=== PATIENT | male | born 1945 | race Caucasian/White ===

== ENCOUNTER 2021-10-07 10:36 | Outpatient (CLI) | payer BC, MEDICARE ==
[2021-10-07 11:13] LABS: BASOPHILS # (AUTO) 0.1 X10'3 (0-0.2); BASOPHILS % (AUTO) 0.7 % (0-1); EOSINOPHILS # (AUTO) 0.1 X10'3 (0-0.9); EOSINOPHILS % (AUTO) 1.5 % (0-6); HEMATOCRIT 47.1 % (42.0-52.0); HEMOGLOBIN 15.8 g/dl (14.0-17.9); LYMPHOCYTES # (AUTO) 1.4 X10'3 (1.1-4.8); LYMPHOCYTES % (AUTO) 16.8 % (21-51); MEAN CORPUSCULAR HEMOGLOBIN 31.6 PG (27.0-31.0); MEAN CORPUSCULAR HGB CONC 33.6 g/dL (33.0-36.5); MEAN PLATELET VOLUME 8.3 FL (7.4-10.4); MONOCYTES # (AUTO) 0.7 X10'3 (0-0.9); MONOCYTES % (AUTO) 8.9 % (2-12); NEUTROPHILS % (AUTO) 72.1 % (42-75); PLATELET COUNT 239 X10'3 (140-440); RED BLOOD COUNT 5.01 X10'6 (4.70-6.10); RED CELL DISTRIBUTION WIDTH 12.7 % (11.5-14.5); WHITE BLOOD COUNT 8.4 X10'3 (4.5-11.0)
[2021-10-07 11:36] LABS: ALANINE AMINOTRANSFERASE 25 U/L (12-78); ALBUMIN 3.6 G/DL (3.4-5.0); ALKALINE PHOSPHATASE 91 IU/L (46-116); ANION GAP 6 (8-16); ASPARTATE AMINO TRANSFERASE 23 U/L (10-37); BILIRUBIN,TOTAL 0.5 MG/DL (0.1-1.0); BLOOD UREA NITROGEN 18 MG/DL (7-18); BUN/CREATININE RATIO 16.4 (5.4-32.0); CALCIUM 8.9 MG/DL (8.5-10.1); CHLORIDE 105 MMOL/L (99-107); CHOL/HDL RATIO 2.4 (0.00-4.99); CHOLESTEROL 116 MG/DL (0-200); GLUCOSE 102 MG/DL (70-104); HDL CHOLESTEROL 48 MG/DL (35-60); LDL CHOLESTEROL 59 MG/DL (50-100); SODIUM 140 MMOL/L (135-145); TOTAL CARBON DIOXIDE 29.4 MMOL/L (24-32); TOTAL PROTEIN 7.3 G/DL (6.4-8.2); TRIGLYCERIDES 34 MG/DL (20-135); eGFR 65 ML/MIN
[2021-10-07 11:50] LABS: HEMOGLOBIN A1C 5.9 % (4.5-6.2)
== END 2021-10-07 23:59 | disposition home or self-care (01) ==
LOC: LAB 10:36
PROVIDERS: ATTEND Family Medicine
DX: Z12.5 Encounter for screening for malignant neoplasm of prostate (principal); E11.9 Type 2 diabetes mellitus without complications; E78.00 Pure hypercholesterolemia, unspecified; I10 Essential (primary) hypertension
CPT/HCPCS: 36415; 80053; 80061; 83036; 84153; 84443; 85025

== ENCOUNTER 2021-11-01 11:24 | Outpatient (CLI) | payer BC, MEDICARE ==
[2021-11-05 09:37] LABS: TESTOSTERONE, FREE, DIRECT 4.7
== END 2021-11-01 23:59 | disposition home or self-care (01) ==
LOC: LAB 11:24
PROVIDERS: ATTEND Family Medicine
DX: E55.9 Vitamin D deficiency, unspecified (principal); E29.1 Testicular hypofunction
CPT/HCPCS: 36415; 82306; 84402; 84403

== ENCOUNTER → 2022-08-11 | Outpatient (CLI) | payer BC | END | disposition home or self-care (01) | LOC: LAB 12:06 | PROVIDERS: ATTEND Nurse Practitioner Family | DX: R06.09 Other forms of dyspnea (principal); E78.5 Hyperlipidemia, unspecified; I70.213 Atherosclerosis of native arteries of extremities with intermittent claudication, bilateral legs; I10 Essential (primary) hypertension | CPT/HCPCS: 36415; 71046; 83880 ==

== ENCOUNTER → 2022-08-11 | Outpatient (CLI) | payer BC ==
[2022-08-11 14:11] LABS: BASOPHILS % (AUTO) 0.4 % (0-1); EOSINOPHILS # (AUTO) 0.2 X10'3 (0-0.9); EOSINOPHILS % (AUTO) 2.2 % (0-6); HEMOGLOBIN 15.2 g/dl (14.0-17.9); LYMPHOCYTES # (AUTO) 1.6 X10'3 (1.1-4.8); LYMPHOCYTES % (AUTO) 18.9 % (21-51); MEAN CORPUSCULAR HEMOGLOBIN 31.3 PG (27.0-31.0); MEAN CORPUSCULAR VOLUME 94.9 FL (78-98); MEAN PLATELET VOLUME 8.4 FL (7.4-10.4); MONOCYTES # (AUTO) 0.7 X10'3 (0-0.9); MONOCYTES % (AUTO) 7.7 % (2-12); NEUTROPHILS % (AUTO) 70.8 % (42-75); PLATELET COUNT 235 X10'3 (140-440); RED BLOOD COUNT 4.85 X10'6 (4.70-6.10); RED CELL DISTRIBUTION WIDTH 12.4 % (11.5-14.5); WHITE BLOOD COUNT 8.5 X10'3 (4.5-11.0)
[2022-08-11 14:24] LABS: ALANINE AMINOTRANSFERASE 27 U/L (12-78); ALBUMIN 3.9 G/DL (3.4-5.0); ALBUMIN/GLOBULIN RATIO 1.1 (1.1-1.5); ALKALINE PHOSPHATASE 86 IU/L (46-116); ANION GAP 10 (8-16); ASPARTATE AMINO TRANSFERASE 22 U/L (10-37); BILIRUBIN,TOTAL 0.5 MG/DL (0.1-1.0); BLOOD UREA NITROGEN 16 MG/DL (7-18); CALCIUM 9.1 MG/DL (8.5-10.1); CHLORIDE 107 MMOL/L (99-107); CHOL/HDL RATIO 2.6 (0.00-4.99); CHOLESTEROL 125 MG/DL (0-200); CREATININE 1.33 MG/DL (0.60-1.10); GLUCOSE 101 MG/DL (70-104); HDL CHOLESTEROL 49 MG/DL (35-60); LDL CHOLESTEROL 66 MG/DL (50-100); POTASSIUM 4.2 MMOL/L (3.5-5.1); SODIUM 143 MMOL/L (135-145); TOTAL PROTEIN 7.3 G/DL (6.4-8.2); TRIGLYCERIDES 62 MG/DL (20-135); eGFR 52 ML/MIN
== END | disposition home or self-care (01) ==
LOC: LAB 12:14
PROVIDERS: ATTEND Family Medicine
DX: D64.9 Anemia, unspecified (principal); E78.00 Pure hypercholesterolemia, unspecified
CPT/HCPCS: 36415; 80053; 80061; 85025

== ENCOUNTER → 2022-08-18 | Outpatient (CLI) | payer BC ==
[~2022-08-18] MED LIST: iohexol 350 MG/ML 50ML vial IV ONE; iohexol 350MG/ML 100ml bottle IV ONE
== END | disposition home or self-care (01) ==
LOC: RAD 08:47
PROVIDERS: ATTEND Internal Medicine Interventional Cardiology
DX: I70.213 Atherosclerosis of native arteries of extremities with intermittent claudication, bilateral legs (principal); I72.3 Aneurysm of iliac artery; I10 Essential (primary) hypertension; I71.43 Infrarenal abdominal aortic aneurysm, without rupture
CPT/HCPCS: 75635; J3490; Q9967

== ENCOUNTER 2022-11-16 10:34 | Outpatient (CLI) | payer BC ==
[2022-11-16 11:01] LABS: BASOPHILS # (AUTO) 0.1 X10'3 (0-0.2); BASOPHILS % (AUTO) 0.7 % (0-1); EOSINOPHILS # (AUTO) 0.3 X10'3 (0-0.9); HEMATOCRIT 44.4 % (42.0-52.0); HEMOGLOBIN 15.1 g/dl (14.0-17.9); LYMPHOCYTES # (AUTO) 2.1 X10'3 (1.1-4.8); LYMPHOCYTES % (AUTO) 22.4 % (21-51); MEAN CORPUSCULAR HEMOGLOBIN 32.1 PG (27.0-31.0); MEAN CORPUSCULAR HGB CONC 33.9 g/dL (33.0-36.5); MEAN CORPUSCULAR VOLUME 94.6 FL (78-98); MEAN PLATELET VOLUME 8.3 FL (7.4-10.4); MONOCYTES # (AUTO) 0.8 X10'3 (0-0.9); MONOCYTES % (AUTO) 8.9 % (2-12); NEUTROPHILS # (AUTO) 6.2 X10'3 (1.8-7.7); PLATELET COUNT 262 X10'3 (140-440); RED CELL DISTRIBUTION WIDTH 12.8 % (11.5-14.5); WHITE BLOOD COUNT 9.5 X10'3 (4.5-11.0)
[2022-11-16 11:04] LABS: ALBUMIN 3.7 G/DL (3.4-5.0); ANION GAP 9 (8-16); BLOOD UREA NITROGEN 17 MG/DL (7-18); BUN/CREATININE RATIO 12.1 (10.0-20.0); CALCIUM 9.3 MG/DL (8.5-10.1); CHLORIDE 105 MMOL/L (99-107); CREATININE 1.41 MG/DL (0.60-1.10); GLUCOSE 100 MG/DL (70-104); SODIUM 141 MMOL/L (135-145); TOTAL CARBON DIOXIDE 26.6 MMOL/L (24-32); eGFR 49 ML/MIN
[2022-11-16 11:08] LABS: APTT 31 SECONDS (22-32)
== END 2022-11-16 23:59 | disposition home or self-care (01) ==
LOC: LAB 10:34
PROVIDERS: ATTEND Surgery Vascular Surgery
DX: I71.40 Abdominal aortic aneurysm, without rupture, unspecified (principal)
CPT/HCPCS: 36415; 80048; 85025; 85610; 85730

== ENCOUNTER 2022-12-10 10:06 | Outpatient (CLI) | payer BC | END 2022-12-10 23:59 | disposition home or self-care (01) | LOC: VAS 10:06 | PROVIDERS: ATTEND Internal Medicine Interventional Cardiology | DX: I71.30 Abdominal aortic aneurysm, ruptured, unspecified (principal); I72.3 Aneurysm of iliac artery; I70.213 Atherosclerosis of native arteries of extremities with intermittent claudication, bilateral legs | CPT/HCPCS: 93978 ==

== ENCOUNTER 2023-01-05 23:39 | Inpatient (IN) | payer BC, MEDICARE ==
[~2023-01-05] VITALS: Ht 177.8 cm; Wt 77.3 kg
[2023-01-05] MEDS ORDERED: ondansetron/PF 4mg/2ml inj IV ONE (23:45)
[2023-01-05] MEDS ORDERED: morphine 4 MG/ML inj SYRINge IV ONE (23:45)
[2023-01-05] MEDS ORDERED: hydrALAZINE 20mg/ml inj. IV ONE (23:45)
[2023-01-05] MEDS ORDERED: iohexol 350MG/ML 100ml bottle IV ONE (23:46)
--- NOTE | 2023-01-05 23:54 | NUR ---
Per MD, evaluate BP after Morphine to assess need for Hydralazine.
[2023-01-05 23:59] LABS: BASOPHILS # (AUTO) 0.1 X10'3 (0-0.2); BASOPHILS % (AUTO) 0.9 % (0-1); EOSINOPHILS # (AUTO) 0.5 X10'3 (0-0.9); HEMATOCRIT 41.7 % (42.0-52.0); HEMOGLOBIN 13.9 g/dl (14.0-17.9); LYMPHOCYTES # (AUTO) 2.6 X10'3 (1.1-4.8); LYMPHOCYTES % (AUTO) 25.1 % (21-51); MEAN CORPUSCULAR HEMOGLOBIN 31.2 PG (27.0-31.0); MEAN CORPUSCULAR HGB CONC 33.4 g/dL (33.0-36.5); MEAN CORPUSCULAR VOLUME 93.5 FL (78-98); MEAN PLATELET VOLUME 7.6 FL (7.4-10.4); MONOCYTES # (AUTO) 0.8 X10'3 (0-0.9); MONOCYTES % (AUTO) 7.5 % (2-12); NEUTROPHILS # (AUTO) 6.4 X10'3 (1.8-7.7); NEUTROPHILS % (AUTO) 61.5 % (42-75); PLATELET COUNT 271 X10'3 (140-440); RED BLOOD COUNT 4.46 X10'6 (4.70-6.10); RED CELL DISTRIBUTION WIDTH 13.2 % (11.5-14.5); WHITE BLOOD COUNT 10.4 X10'3 (4.5-11.0)
[2023-01-06 00:10] LABS: ALANINE AMINOTRANSFERASE 20 U/L (12-78); ALBUMIN 3.5 G/DL (3.4-5.0); ALBUMIN/GLOBULIN RATIO 0.9 (1.1-1.5); ALKALINE PHOSPHATASE 103 IU/L (46-116); ANION GAP 6 (8-16); ASPARTATE AMINO TRANSFERASE 18 U/L (10-37); BILIRUBIN,TOTAL 0.4 MG/DL (0.1-1.0); BLOOD UREA NITROGEN 22 MG/DL (7-18); BUN/CREATININE RATIO 17.5 (10.0-20.0); CALCIUM 9.2 MG/DL (8.5-10.1); CHLORIDE 106 MMOL/L (99-107); CREATININE 1.26 MG/DL (0.60-1.10); GLUCOSE 173 MG/DL (70-104); SODIUM 140 MMOL/L (135-145); TOTAL CARBON DIOXIDE 27.6 MMOL/L (24-32); TOTAL PROTEIN 7.3 G/DL (6.4-8.2); eGFR 55 ML/MIN
[2023-01-06 00:19] LABS: MAGNESIUM 1.9 MG/DL (1.5-2.4)
[2023-01-06] MEDS ORDERED: morphine 4 MG/ML inj SYRINge IV ONE (00:20)
[2023-01-06] MEDS ORDERED: esmolol/sodium cl bag 250 ML IV SCH (00:20)
[2023-01-06] MEDS: nitroGLYCERIN 0.4mg SUBLingual tab SL PRN ×2 (00:36→01:08)
[2023-01-06 00:53] LABS: D-DIMER 4.05 MG/L FEU (0-0.50)
[2023-01-06] MEDS ORDERED: nitroGLYCERIN-Tridil 50MG/D5W 250 ML IV SCH ×2 (01:15→01:18)
[2023-01-06] MEDS ORDERED: TRAM50TA2 PO (01:43)
[2023-01-06] MEDS ORDERED: ATOR40TA7 PO (01:43)
[2023-01-06] MEDS ORDERED: OLME40TA70 PO (01:43)
[2023-01-06] MEDS ORDERED: ASPI-1071 PO (01:43)
[2023-01-06] MEDS ORDERED: CLOP-32 PO (01:43)
[2023-01-06] MEDS ORDERED: HYDROmorphone inj. 0.5 MG/0.5 ML DISP.SYRIN IV ONE (02:00)
[2023-01-06] MEDS ORDERED: heparin 10,000 units/1 ML INJ IV ONE ×2 (02:25→02:30)
[2023-01-06] MEDS ORDERED: heparin 25,000 UNIT/250ml bag 250 ML IV PRN (02:25)
[2023-01-06] MEDS ORDERED: heparin 10,000 units/1 ML INJ IV PRN (02:25)
[2023-01-06] MEDS ORDERED: magnesium 4gm in 100ml NS 100 ML IV PRN (02:55)
[2023-01-06] MEDS: normal saline 1000ml 1,000 ML IV SCH ×2 (02:55→16:45)
[2023-01-06] MEDS ORDERED: potassium Cl 40MEQ/1/2NS 520ml 520 ML IV PRN (02:55)
[2023-01-06] MEDS ORDERED: acetaminophen 325mg tablet PO PRN ×2 (02:55)
[2023-01-06] MEDS ORDERED: magnesium 2GM in 50ml NS 50 ML IV PRN (02:55)
[2023-01-06] MEDS ORDERED: ondansetron/PF 4mg/2ml inj IV PRN (02:55)
[2023-01-06] MEDS ORDERED: magnesium Cl slow-release 64mg tablet PO PRN (02:55)
[2023-01-06] MEDS ORDERED: HYDROcodone/acetaminophen 10/325mg tab PO PRN (02:55)
[2023-01-06] MEDS ORDERED: HYDROcodone/acetaminophen 5mg/325mg tablet PO PRN (02:55)
[2023-01-06] MEDS ORDERED: morphine 2 MG/ML inj. syringe IV PRN ×2 (02:55)
[2023-01-06] MEDS ORDERED: potassium Cl 20 mEq SR tablet PO PRN ×2 (02:55)
[2023-01-06] MEDS: nicotine 14mg patch - 24hr TD SCH ×2 (03:20→07:37)
[2023-01-06] MEDS: pantoprazole 40mg Tablet.DR PO SCH ×3 (03:30→20:03)
--- NOTE | 2023-01-06 03:33 | NUR ---
Approached by patient , patient back in 05/12 pain. Page to Magu as patient's pain did not respond to Morphine earlier in care and patient only had PRN 2mg Morphine ordered by Hospitalist. Hospitalist hostile on phone and stated "I am not giving him any more pain meds than I have ordered. That patient is not in pain." Nurse informed Hospitalist that patient is in fact in 05/12 and exhibiting physical signs of pain, Magu continued to argue with nurse and stated "Im not talking about this anymore if Dr Magaña wants to write for more pain meds than he can". Nurse approached Dr. Magaña who has agreed to put in more effective PRN pain control orders as he has been a witness to patient severe pain.
[2023-01-06] MEDS ORDERED: HYDROmorphone/PF 0.2 MG/ML SYRINGE IV PRN ×2 (03:35)
[2023-01-06] MEDS: HYDROmorphone inj. 0.5 MG/0.5 ML DISP.SYRIN IV PRN ×2 (03:51→11:08)
--- NOTE | 2023-01-06 04:57 | NUR ---
Patient asleep. Resting comfortably in bed, no signs of distress.
[2023-01-06] MEDS: aspirin 81mg, enteric-coated 1 TAB TABLET.DR PO SCH (07:34)
[2023-01-06] MEDS: atorvastatin 20mg tablet PO SCH (07:35)
[2023-01-06] MEDS: clopidogrel 75mg tablet PO SCH (07:35)
[2023-01-06 08:00] VITALS: BP 180/102
--- NOTE | 2023-01-06 08:10 | NUR ---
Pt brought from ER. Report received from Rajwinder. Pt is in bed and has pain and correlating high BP. Pt took BP med last night. Will treat with lessening of pain and will recheck.
[2023-01-06] MEDS: traMADol 50MG tablet PO SCH ×2 (08:21→20:03)
[2023-01-06] MEDS: heparin, porcine 5000 units/ml vial SQ SCH ×3 (08:22→20:03)
[2023-01-06] MEDS: HYDROcodone/acetaminophen 10/325mg tab PO PRN ×2 (10:05→22:09)
--- NOTE | 2023-01-06 10:30 | NUR ---
PAGER ID: [phone] MESSAGE: Ethan [id number], Pt has received all pain meds I have for coverage but still shows no signs of relief. Pt is in high pain even with Dilaudid and [place]. Mehdi [id number]
[2023-01-06 11:00] VITALS: BP 191/99
[2023-01-06] MEDS ORDERED: LORazepam 2 mg/ml vial IV PRN (12:05)
[2023-01-06] MEDS: LIDOcaine 5% patch TP SCH (12:05)
[2023-01-06] MEDS: HYDROmorphone 1 mg/ml syringe IV PRN ×2 (14:33→19:30)
[2023-01-06 15:00] VITALS: BP 178/90
[2023-01-06] MEDS ORDERED: GADOTERATE MEGLUMINE 7.5 MMOL/15 ML VIAL IV ONE (15:50)
--- NOTE | 2023-01-06 17:13 | NUR ---
Pt still has high BP but it is lower than it has been today, last reading was 178/90. Pt usually takes his BP meds at night so we are in his normal routine. Pt's elevated BP seems to be mostly due to his strong pain he is experiencing. Will continue to monitor but pt is unconcerned about his BP currently.
[2023-01-06] MEDS ORDERED: hydrALAZINE 20mg/ml inj. IV PRN (17:55)
--- NOTE | 2023-01-06 17:56 | NUR ---
PAGER ID: [phone] MESSAGE: Ethan [id number], Pt's BP has been high today. His BP med on the med rec was held and we have no BP med in his eMAR. Did you want one started? Mehdi [phone]
[2023-01-06 18:00] VITALS: BP 186/107
--- NOTE | 2023-01-06 18:46 | NUR ---
Problems reprioritized. Patient report given, questions answered & plan of care reviewed with Raul PHILLIPS.
--- NOTE | 2023-01-06 21:00 | NUR ---
Agree with DIMENSION SPECIFICATION INSPECTOR's assessments.
[2023-01-07 02:00] VITALS: BP 152/82
--- NOTE | 2023-01-07 06:40 | NUR ---
Patient in room PCU 3027. I have received report from Raul PHILLIPS and had the opportunity to ask questions and assume patient care.
[2023-01-07] MEDS: normal saline 1000ml 1,000 ML IV SCH (06:42)
[2023-01-07 06:51] LABS: ALANINE AMINOTRANSFERASE 16 U/L (12-78); ALBUMIN 3.1 G/DL (3.4-5.0); ALBUMIN/GLOBULIN RATIO 0.9 (1.1-1.5); ALKALINE PHOSPHATASE 88 IU/L (46-116); ANION GAP 8 (8-16); ASPARTATE AMINO TRANSFERASE 22 U/L (10-37); BASOPHILS % (AUTO) 0.3 % (0-1); BILIRUBIN,TOTAL 0.8 MG/DL (0.1-1.0); BLOOD UREA NITROGEN 14 MG/DL (7-18); BUN/CREATININE RATIO 14.3 (10.0-20.0); CALCIUM 8.8 MG/DL (8.5-10.1); CHLORIDE 106 MMOL/L (99-107); CREATININE 0.98 MG/DL (0.60-1.10); EOSINOPHILS # (AUTO) 0.1 X10'3 (0-0.9); EOSINOPHILS % (AUTO) 0.6 % (0-6); GLUCOSE 117 MG/DL (70-104); HEMATOCRIT 37.4 % (42.0-52.0); HEMOGLOBIN 12.8 g/dl (14.0-17.9); LYMPHOCYTES # (AUTO) 1.2 X10'3 (1.1-4.8); MEAN CORPUSCULAR HEMOGLOBIN 32.2 PG (27.0-31.0); MEAN CORPUSCULAR HGB CONC 34.3 g/dL (33.0-36.5); MEAN CORPUSCULAR VOLUME 93.8 FL (78-98); MEAN PLATELET VOLUME 7.7 FL (7.4-10.4); MONOCYTES # (AUTO) 1.5 X10'3 (0-0.9); MONOCYTES % (AUTO) 14.9 % (2-12); NEUTROPHILS # (AUTO) 7.3 X10'3 (1.8-7.7); NEUTROPHILS % (AUTO) 72.2 % (42-75); PLATELET COUNT 206 X10'3 (140-440); POTASSIUM 3.5 MMOL/L (3.5-5.1); RED BLOOD COUNT 3.99 X10'6 (4.70-6.10); RED CELL DISTRIBUTION WIDTH 13.5 % (11.5-14.5); SODIUM 139 MMOL/L (135-145); TOTAL CARBON DIOXIDE 24.8 MMOL/L (24-32); TOTAL PROTEIN 6.5 G/DL (6.4-8.2); eGFR 74 ML/MIN
[2023-01-07] MEDS: traMADol 50MG tablet PO SCH ×2 (08:00→08:54)
[2023-01-07] MEDS: LIDOcaine 5% patch TP SCH (08:00)
[2023-01-07] MEDS ORDERED: losartan 50mg tablet PO SCH (08:00)
[2023-01-07] MEDS: nicotine 14mg patch - 24hr TD SCH (08:00)
[2023-01-07] MEDS: heparin, porcine 5000 units/ml vial SQ SCH (08:00)
[2023-01-07 08:53] VITALS: BP_SYST 176
[2023-01-07] MEDS: clopidogrel 75mg tablet PO SCH (08:53)
[2023-01-07] MEDS: pantoprazole 40mg Tablet.DR PO SCH (08:53)
[2023-01-07] MEDS: aspirin 81mg, enteric-coated 1 TAB TABLET.DR PO SCH (08:54)
[2023-01-07] MEDS: atorvastatin 20mg tablet PO SCH (08:54)
[2023-01-07] MEDS ORDERED: LORA-269 PO (09:33)
[2023-01-07] MEDS ORDERED: HYDR-3972 PO (09:33)
[2023-01-07] MEDS ORDERED: NICO-631 TD (09:33)
--- NOTE | 2023-01-07 12:34 | NUR ---
Pt DC'd as per Dr's orders. Pt unhooked from all IV and tele. Education was provided to pt and spouse, all questions were answered. Pt's belongings were gathered up by family and taken with them. 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 Pt walked down to [facility] and left in private vehicle destined for home.
== END 2023-01-07 11:09 | disposition home or self-care (01) | DRG 313 ==
LOC: ER 23:40 → ED HOLD 01-06 02:56 → PCU 3S 01-06 07:48
PROVIDERS: ADMIT Internal Medicine; ATTEND Internal Medicine
PROC: BW251ZZ Computerized Tomography (CT Scan) of Chest, Abdomen and Pelvis using Low Osmolar Contrast (ICD-10-PCS; principal; 2023-01-06)
DX: R07.89 Other chest pain (principal); M54.30 Sciatica, unspecified side; I10 Essential (primary) hypertension; L40.9 Psoriasis, unspecified; R79.89 Other specified abnormal findings of blood chemistry; F17.290 Nicotine dependence, other tobacco product, uncomplicated; J44.9 Chronic obstructive pulmonary disease, unspecified; M62.838 Other muscle spasm; D18.09 Hemangioma of other sites; M54.6 Pain in thoracic spine; G89.29 Other chronic pain; Z88.6 Allergy status to analgesic agent; Z88.8 Allergy status to other drugs, medicaments and biological substances; Z79.899 Other long term (current) drug therapy; Z86.79 Personal history of other diseases of the circulatory system; Z88.1 Allergy status to other antibiotic agents; Z79.02 Long term (current) use of antithrombotics/antiplatelets; Z79.82 Long term (current) use of aspirin
CPT/HCPCS: 36415; 71045; 71275; 72157; 74174; 80053; 83605; 83735; 83880; 84484; 85025; 85379; 85610; 85730; 86885; 86900; 86901; 87040; 87081; 96374; 96375; 99285; A9575; G0378; J0360; J1170; J1644; J2060; J2270; J2405; J3490; J7030; Q9967

== ENCOUNTER 2023-02-02 05:35 | Emergency (ER) | payer BC, MEDICARE ==
[~2023-02-02] VITALS: Ht 177.8 cm; Wt 75.0 kg
[~2023-02-02 05:35] MED LIST changes: +ASPI-1071 PO; +ATOR40TA7 PO; +CLOP-32 PO; +HYDR-3972 PO; +LORA-269 PO; +NICO-631 TD; +OLME40TA70 PO; +TRAM50TA2 PO; -iohexol 350 MG/ML 50ML vial IV ONE; -iohexol 350MG/ML 100ml bottle IV ONE
[2023-02-02] MEDS ORDERED: morphine 4 MG/ML inj SYRINge IV ONE ×4 (05:50→09:00)
[2023-02-02] MEDS ORDERED: ondansetron/PF 4mg/2ml inj IV ONE ×2 (05:50→13:50)
[2023-02-02 06:20] LABS: APTT 33 SECONDS (22-32)
[2023-02-02 06:22] LABS: ALANINE AMINOTRANSFERASE 14 U/L (12-78); ALBUMIN/GLOBULIN RATIO 0.7 (1.1-1.5); ALKALINE PHOSPHATASE 99 IU/L (46-116); ANION GAP 9 (8-16); ASPARTATE AMINO TRANSFERASE 14 U/L (10-37); BILIRUBIN,TOTAL 0.3 MG/DL (0.1-1.0); BLOOD UREA NITROGEN 17 MG/DL (7-18); CHLORIDE 106 MMOL/L (99-107); CREATININE 1.42 MG/DL (0.60-1.10); GLUCOSE 146 MG/DL (70-104); POTASSIUM 3.4 MMOL/L (3.5-5.1); SODIUM 141 MMOL/L (135-145); TOTAL CARBON DIOXIDE 26.4 MMOL/L (24-32); TOTAL PROTEIN 7.2 G/DL (6.4-8.2); eGFR 48 ML/MIN
[2023-02-02 06:23] LABS: BASOPHILS # (AUTO) 0.1 X10'3 (0-0.2); BASOPHILS % (AUTO) 0.4 % (0-1); EOSINOPHILS # (AUTO) 0.3 X10'3 (0-0.9); EOSINOPHILS % (AUTO) 2.1 % (0-6); HEMATOCRIT 36.6 % (42.0-52.0); HEMOGLOBIN 12.2 g/dl (14.0-17.9); LYMPHOCYTES # (AUTO) 1.1 X10'3 (1.1-4.8); LYMPHOCYTES % (AUTO) 7.3 % (21-51); MEAN CORPUSCULAR HEMOGLOBIN 30.8 PG (27.0-31.0); MEAN CORPUSCULAR HGB CONC 33.4 g/dL (33.0-36.5); MEAN CORPUSCULAR VOLUME 92.3 FL (78-98); MEAN PLATELET VOLUME 8.2 FL (7.4-10.4); MONOCYTES # (AUTO) 1.2 X10'3 (0-0.9); MONOCYTES % (AUTO) 7.7 % (2-12); NEUTROPHILS # (AUTO) 12.5 X10'3 (1.8-7.7); NEUTROPHILS % (AUTO) 82.5 % (42-75); PLATELET COUNT 332 X10'3 (140-440); RED BLOOD COUNT 3.97 X10'6 (4.70-6.10); RED CELL DISTRIBUTION WIDTH 13.7 % (11.5-14.5); WHITE BLOOD COUNT 15.1 X10'3 (4.5-11.0)
--- NOTE | 2023-02-02 06:25 | NUR ---
vascular at bedside
[2023-02-02] MEDS ORDERED: normal saline 1000ML IV soln IVB ONE (07:50)
--- NOTE | 2023-02-02 09:36 | NUR ---
PATIENT AT MRI
[2023-02-02] MEDS ORDERED: atorvastatin 20mg tablet PO ONE (11:19)
[2023-02-02] MEDS ORDERED: losartan 50mg tablet PO ONE (11:20)
[2023-02-02] MEDS ORDERED: clopidogrel 75mg tablet PO ONE (11:20)
[2023-02-02] MEDS ORDERED: dexamethasone sod phosphate 10mg/ml inj IV STA (12:22)
[2023-02-02] MEDS ORDERED: HYDROmorphone 1 mg/ml syringe IV ONE (13:05)
[2023-02-02 14:19] VITALS: BP 148/74
== END 2023-02-02 14:20 | disposition short-term general hospital (02) ==
LOC: ER 05:36
DX: R53.1 Weakness (principal); M54.9 Dorsalgia, unspecified; R20.0 Anesthesia of skin; I10 Essential (primary) hypertension; R79.1 Abnormal coagulation profile; J44.9 Chronic obstructive pulmonary disease, unspecified; Z72.89 Other problems related to lifestyle; Z88.8 Allergy status to other drugs, medicaments and biological substances; Z88.1 Allergy status to other antibiotic agents; Z79.82 Long term (current) use of aspirin; Z79.899 Other long term (current) drug therapy
CPT/HCPCS: 36415; 72148; 80053; 85025; 85610; 85730; 93925; 96374; 96375; 96376; 99285; J1100; J1170; J2270; J2405; J7030

== ENCOUNTER 2023-03-02 10:31 | Emergency (ER) | payer BC, MEDICARE ==
[~2023-03-02] VITALS: Ht 165.1 cm; Wt 63.6 kg
[2023-03-02 10:36] VITALS: TEMP 97.9
[2023-03-02 11:00] LABS: COLOR,URINE BROWN (Yellow)
[2023-03-02] MEDS ORDERED: LEVO-65 PO (11:00)
[2023-03-02] MEDS ORDERED: CefTRIAXone 2gm/D5W 50ml BAG 50 ML IV ONE (11:00)
[2023-03-02 11:03] LABS: BASOPHILS # (AUTO) 0.1 X10'3 (0-0.2); EOSINOPHILS # (AUTO) 0.5 X10'3 (0-0.9); EOSINOPHILS % (AUTO) 6.2 % (0-6); HEMATOCRIT 37.6 % (42.0-52.0); HEMOGLOBIN 12.4 g/dl (14.0-17.9); LYMPHOCYTES # (AUTO) 1.7 X10'3 (1.1-4.8); LYMPHOCYTES % (AUTO) 21.7 % (21-51); MEAN CORPUSCULAR HEMOGLOBIN 30.1 PG (27.0-31.0); MEAN CORPUSCULAR HGB CONC 32.9 g/dL (33.0-36.5); MEAN CORPUSCULAR VOLUME 91.4 FL (78-98); MEAN PLATELET VOLUME 7.9 FL (7.4-10.4); MONOCYTES # (AUTO) 0.7 X10'3 (0-0.9); MONOCYTES % (AUTO) 9.2 % (2-12); NEUTROPHILS # (AUTO) 4.8 X10'3 (1.8-7.7); NEUTROPHILS % (AUTO) 61.9 % (42-75); PLATELET COUNT 228 X10'3 (140-440); RED BLOOD COUNT 4.11 X10'6 (4.70-6.10); RED CELL DISTRIBUTION WIDTH 14.1 % (11.5-14.5); WHITE BLOOD COUNT 7.8 X10'3 (4.5-11.0)
[2023-03-02 11:03] LABS: CLARITY,URINE BLOODY (Clear); UA COLLECTION TYPE FOLEY CATH
[2023-03-02 11:16] LABS: BACTERIA,URINE 2+ /HPF (Neg); MUCUS STRANDS NONE SEEN /LPF (Neg); RBC,URINE TNTC /HPF (0-2); SQUAMOUS EPITHELIAL CELL,UR NONE SEEN /LPF (FEW); WBC CLUMPS,URINE FEW /HPF (NEGATIVE)
[2023-03-02 11:17] LABS: ALANINE AMINOTRANSFERASE 18 U/L (12-78); ALBUMIN 3.2 G/DL (3.4-5.0); ALBUMIN/GLOBULIN RATIO 0.9 (1.1-1.5); ALKALINE PHOSPHATASE 107 IU/L (46-116); ANION GAP 11 (8-16); ASPARTATE AMINO TRANSFERASE 13 U/L (10-37); BILIRUBIN,TOTAL 0.4 MG/DL (0.1-1.0); BLOOD UREA NITROGEN 20 MG/DL (7-18); BUN/CREATININE RATIO 16.1 (10.0-20.0); CALCIUM 9.6 MG/DL (8.5-10.1); CHLORIDE 104 MMOL/L (99-107); CREATININE 1.24 MG/DL (0.60-1.10); GLUCOSE 117 MG/DL (70-104); SODIUM 139 MMOL/L (135-145); TOTAL CARBON DIOXIDE 24.5 MMOL/L (24-32); TOTAL PROTEIN 6.9 G/DL (6.4-8.2); eGFR 56 ML/MIN
[2023-03-02 12:13] VITALS: BP 105/64; PULSE 105; RESP 16; O2SAT 97
== END 2023-03-02 12:19 | disposition home or self-care (01) ==
LOC: ER 10:32
DX: R31.9 Hematuria, unspecified (principal); J44.9 Chronic obstructive pulmonary disease, unspecified; I10 Essential (primary) hypertension; Z88.8 Allergy status to other drugs, medicaments and biological substances; Z88.1 Allergy status to other antibiotic agents; Z87.891 Personal history of nicotine dependence
CPT/HCPCS: 36415; 80053; 81001; 83605; 84145; 85025; 87040; 87088; 96365; 99284; J0696; 87077; 87186; A4340; C1758

== ENCOUNTER 2023-03-15 10:38 | Emergency (ER) | payer BC, MEDICARE ==
[~2023-03-15] VITALS: Ht 167.6 cm; Wt 63.3 kg
[~2023-03-15 10:38] MED LIST changes: +LEVO-65 PO
[2023-03-15 10:41] VITALS: TEMP 97.8
[2023-03-15 10:55] LABS: COLOR,URINE RED (Yellow)
[2023-03-15 11:01] LABS: CLARITY,URINE BLOODY (Clear); UA COLLECTION TYPE CLN CATCH MIDSTREAM
[2023-03-15 11:12] LABS: BASOPHILS # (AUTO) 0.1 X10'3 (0-0.2); BASOPHILS % (AUTO) 1.3 % (0-1); EOSINOPHILS # (AUTO) 0.4 X10'3 (0-0.9); EOSINOPHILS % (AUTO) 6.8 % (0-6); HEMATOCRIT 34.9 % (42.0-52.0); HEMOGLOBIN 11.7 g/dl (14.0-17.9); LYMPHOCYTES # (AUTO) 1.2 X10'3 (1.1-4.8); LYMPHOCYTES % (AUTO) 20.7 % (21-51); MEAN CORPUSCULAR HEMOGLOBIN 30.3 PG (27.0-31.0); MEAN CORPUSCULAR HGB CONC 33.5 g/dL (33.0-36.5); MEAN CORPUSCULAR VOLUME 90.6 FL (78-98); MONOCYTES # (AUTO) 0.6 X10'3 (0-0.9); MONOCYTES % (AUTO) 10.2 % (2-12); NEUTROPHILS # (AUTO) 3.6 X10'3 (1.8-7.7); PLATELET COUNT 231 X10'3 (140-440); RED BLOOD COUNT 3.85 X10'6 (4.70-6.10); RED CELL DISTRIBUTION WIDTH 14.1 % (11.5-14.5)
[2023-03-15 11:12] LABS: CAL OXALATE CRYSTALS FEW /HPF (NEGATIVE); HYALINE CASTS 0-3 /LPF (NEGATIVE); MUCUS STRANDS NONE SEEN /LPF (Neg); RBC,URINE TNTC /HPF (0-2); RENAL CELLS, URINE FEW /HPF; SQUAMOUS EPITHELIAL CELL,UR NONE SEEN /LPF (FEW); WBC,URINE 0-4 /HPF (0-4)
[2023-03-15 11:13] LABS: BACTERIA,URINE NONE SEEN /HPF (Neg)
[2023-03-15 11:30] LABS: ALANINE AMINOTRANSFERASE 16 U/L (12-78); ALBUMIN/GLOBULIN RATIO 0.9 (1.1-1.5); ALKALINE PHOSPHATASE 97 IU/L (46-116); ANION GAP 8 (8-16); ASPARTATE AMINO TRANSFERASE 15 U/L (10-37); BILIRUBIN,TOTAL 0.3 MG/DL (0.1-1.0); BLOOD UREA NITROGEN 18 MG/DL (7-18); BUN/CREATININE RATIO 15.4 (10.0-20.0); CALCIUM 9.1 MG/DL (8.5-10.1); CHLORIDE 105 MMOL/L (99-107); CREATININE 1.17 MG/DL (0.60-1.10); GLUCOSE 120 MG/DL (70-104); LIPASE 365 U/L (73-393); POTASSIUM 3.7 MMOL/L (3.5-5.1); SODIUM 139 MMOL/L (135-145); TOTAL CARBON DIOXIDE 25.9 MMOL/L (24-32); TOTAL PROTEIN 6.5 G/DL (6.4-8.2); eCRCL 47 ML/MIN; eGFR 60 ML/MIN
[2023-03-15] MEDS ORDERED: LIDOcaine 2% 10ml TOPICAL JELLY (Urojet) MM ONE (12:30)
[2023-03-15] MEDS ORDERED: sulfamethoxazole/trimethoprim DS (800/160mg) tablet PO ONE ×2 (12:30→15:58)
[2023-03-15] MEDS ORDERED: LidoCAINE 2% Topical Jelly 11mL syringe TOP ONE (12:35)
--- NOTE | 2023-03-15 13:29 | NUR ---
BREAK RELIEF FOR LUNCH. PT A/OX4. ABLE TO MAKE HIS NEEDS KNOWN. PT ON TOMYPINKY HOB ELEVATED. RR EVEN AND UNLABORED.
--- NOTE | 2023-03-15 14:00 | NUR ---
Started continuous bladder irrigation at 1400 with 3L to 3way 18F burkett placed. 500cc out at this time.
[2023-03-15 14:44] VITALS: BP 103/68; PULSE 84; RESP 18; O2SAT 94
[2023-03-15] MEDS ORDERED: SULF1TAB49 PO (15:28)
== END 2023-03-15 17:44 | disposition home or self-care (01) ==
LOC: ER 10:38
DX: R31.9 Hematuria, unspecified (principal); N39.0 Urinary tract infection, site not specified; J44.9 Chronic obstructive pulmonary disease, unspecified; I10 Essential (primary) hypertension; Z88.8 Allergy status to other drugs, medicaments and biological substances; Z88.1 Allergy status to other antibiotic agents; Z79.82 Long term (current) use of aspirin; Z79.899 Other long term (current) drug therapy
CPT/HCPCS: 36415; 80053; 81001; 83605; 83690; 84145; 85025; 87040; 87077; 87088; 99284; A4314; A4346; A4355

== ENCOUNTER 2023-03-23 10:12 | Outpatient (CLI) | payer BC ==
[~2023-03-23 10:12] MED LIST changes: +SULF1TAB49 PO
[2023-03-23] MEDS ORDERED: iohexol 350MG/ML 100ml bottle IV ONE (10:39)
== END 2023-03-23 23:59 | disposition home or self-care (01) ==
LOC: RAD 10:12
PROVIDERS: ATTEND Surgery Vascular Surgery
DX: J43.9 Emphysema, unspecified (principal); I71.40 Abdominal aortic aneurysm, without rupture, unspecified; K76.89 Other specified diseases of liver; I70.0 Atherosclerosis of aorta; Z90.49 Acquired absence of other specified parts of digestive tract
CPT/HCPCS: 71275; 74174; J3490; Q9967

== ENCOUNTER 2023-09-21 09:01 | Outpatient (CLI) | payer BC, MEDICARE ==
[~2023-09-21 09:01] MED LIST changes: +ATOR-411 PO; -ATOR40TA7 PO; -LEVO-65 PO; -SULF1TAB49 PO
[2023-09-21] MEDS ORDERED: iohexol 350MG/ML 100ml bottle IV ONE (10:02)
[2023-09-21 10:12] LABS: ALANINE AMINOTRANSFERASE 34 U/L (12-78); ALBUMIN 3.5 G/DL (3.4-5.0); ALBUMIN/GLOBULIN RATIO 0.9 (1.1-1.5); ALKALINE PHOSPHATASE 97 IU/L (46-116); ANION GAP 7 (8-16); ASPARTATE AMINO TRANSFERASE 24 U/L (10-37); BILIRUBIN,TOTAL 0.3 MG/DL (0.1-1.0); BLOOD UREA NITROGEN 27 MG/DL (7-18); BUN/CREATININE RATIO 20.6 (10.0-20.0); CALCIUM 8.6 MG/DL (8.5-10.1); CHLORIDE 107 MMOL/L (99-107); CHOL/HDL RATIO 2.1 (0.00-4.99); CHOLESTEROL 122 MG/DL (0-200); CREATININE 1.31 MG/DL (0.60-1.10); GLUCOSE 90 MG/DL (70-104); HDL CHOLESTEROL 57 MG/DL (35-60); LDL CHOLESTEROL 49 MG/DL (50-100); POTASSIUM 4.2 MMOL/L (3.5-5.1); SODIUM 142 MMOL/L (135-145); TOTAL PROTEIN 7.4 G/DL (6.4-8.2); TRIGLYCERIDES 43 MG/DL (20-135); eGFR 53 ML/MIN
== END 2023-09-21 23:59 | disposition home or self-care (01) ==
LOC: RAD 09:01
PROVIDERS: ATTEND Surgery
DX: I71.20 Thoracic aortic aneurysm, without rupture, unspecified (principal); K76.89 Other specified diseases of liver; J43.9 Emphysema, unspecified; I70.0 Atherosclerosis of aorta
CPT/HCPCS: 36415; 71275; 74174; 80053; 80061; J3490; Q9967

== ENCOUNTER 2024-03-10 09:30 | Outpatient (CLI) | payer BC, MEDICARE | END 2024-03-10 23:59 | disposition home or self-care (01) | LOC: VAS 09:30 | PROVIDERS: ATTEND Internal Medicine Interventional Cardiology | DX: I71.30 Abdominal aortic aneurysm, ruptured, unspecified (principal); I70.213 Atherosclerosis of native arteries of extremities with intermittent claudication, bilateral legs | CPT/HCPCS: 93971; 93978 ==

== ENCOUNTER 2024-06-03 05:31 | Day surgery (SDC) | payer BC, MEDICARE ==
[2024-05-30 14:46] LABS: BASOPHILS # (AUTO) 0.1 X10'3 (0-0.2); EOSINOPHILS # (AUTO) 0.2 X10'3 (0-0.9); EOSINOPHILS % (AUTO) 1.5 % (0-6); MEAN PLATELET VOLUME 7.8 FL (7.4-10.4)
[2024-05-30 14:47] LABS: BASOPHILS % (AUTO) 0.8 % (0-1); LYMPHOCYTES # (AUTO) 1.8 X10'3 (1.1-4.8); LYMPHOCYTES % (AUTO) 13.9 % (21-51); MEAN CORPUSCULAR HEMOGLOBIN 32.2 PG (27.0-31.0); MEAN CORPUSCULAR HGB CONC 33.6 g/dL (33.0-36.5); MEAN CORPUSCULAR VOLUME 95.8 FL (78-98); MONOCYTES # (AUTO) 1.1 X10'3 (0-0.9); MONOCYTES % (AUTO) 8.2 % (2-12); NEUTROPHILS # (AUTO) 9.8 X10'3 (1.8-7.7); NEUTROPHILS % (AUTO) 75.6 % (42-75); PRE OP HEMATOCRIT 49.1 % (42.0-52.0); PRE OP HEMOGLOBIN 16.5 g/dL (14.0-17.9); PRE OP PLATELET COUNT 226 X10'3 (140-440); RED BLOOD COUNT 5.13 X10'6 (4.70-6.10); RED CELL DISTRIBUTION WIDTH 13.5 % (11.5-14.5)
[2024-05-30 15:10] LABS: ALBUMIN 3.5 G/DL (3.4-5.0); ALBUMIN/GLOBULIN RATIO 0.9 (1.1-1.5); ALKALINE PHOSPHATASE 73 IU/L (46-116); BLOOD UREA NITROGEN 25 MG/DL (7-18); BUN/CREATININE RATIO 19.8 (10.0-20.0); CALCIUM 9.8 MG/DL (8.5-10.1); CHLORIDE 103 MMOL/L (99-107); CREATININE 1.26 MG/DL (0.60-1.10); PRE OP ALT 48 U/L (30-65); PRE OP ANION GAP 7 (8-16); PRE OP AST 23 U/L (10-37); PRE OP BILIRUB, TOTAL 0.6 MG/DL (0.0-1.0); PRE OP GLUCOSE 104 MG/DL (70-104); PRE OP POTASSIUM 3.7 MMOL/L (3.4-5.1); PRE OP SODIUM 140 MMOL/L (135-145); TOTAL PROTEIN 7.2 G/DL (6.4-8.2); eGFR 55 ML/MIN
[2024-06-03] VITALS (11 sets, daily range): BP systolic 157–184; BP diastolic 88–106; PULSE 65–87; RESP 9–16; TEMP 98; O2SAT 94–98
[~2024-06-03] VITALS: Ht 177.8 cm; Wt 68.3 kg
[~2024-06-03 05:31] MED LIST changes: -ASPI-1071 PO; +CALC625T PO; +CETI-90 PO; +CHOL20004 PO; +DULO30CA52 PO; +FLO0.4C PO; -HYDR-3972 PO; -LORA-269 PO; +MULT-1085 PO; -NICO-631 TD; -OLME40TA70 PO; +OMEG-156 PO; +PRED20TA PO; +SIME180C34 PO; +TOLT4CAP PO; +[UNRECOGNIZED DRUG - OTHER] PO
[2024-06-03] MEDS: famotidine 20mg tablet PO ONE (06:17)
[2024-06-03] MEDS: ringers solution, lacted 1,000 ML IV SCH ×2 (06:18→09:00)
[2024-06-03] MEDS: CefTRIAXone/D5W-Rocephin 1gm 50 ML IV ONE (06:18)
[2024-06-03] MEDS ORDERED: morphine 4 MG/ML inj SYRINge IV PRN (07:25)
[2024-06-03] MEDS ORDERED: proCHLORperazine 10 MG/2 ml inj IV PRN (07:25)
[2024-06-03] MEDS ORDERED: ondansetron/PF 4mg/2ml inj IV PRN (07:25)
[2024-06-03] MEDS ORDERED: HYDROmorphone/PF 0.2 MG/ML SYRINGE IV PRN ×2 (07:25)
[2024-06-03] MEDS ORDERED: sevoflurane 250ml liquid IH ONE (07:25)
[2024-06-03] MEDS ORDERED: morphine 2 MG/ML inj. syringe IV PRN (07:25)
[2024-06-03] MEDS ORDERED: labetalol 20mg/4ml (5mg/ml) syringe IV PRN (07:25)
[2024-06-03] MEDS ORDERED: meperidine/PF 25mg/ml syringe IV PRN (07:25)
[2024-06-03] MEDS ORDERED: fentaNYL/PF 50MCG/1 ML 2ML syringe ONE (07:36)
[2024-06-03] MEDS ORDERED: midazolam 1 mg/ML 2ml injection ONE (07:50)
[2024-06-03] MEDS ORDERED: ondansetron/PF 4mg/2ml inj ONE (07:50)
[2024-06-03] MEDS ORDERED: propofol inj 20 ML IV ONE (07:51)
[2024-06-03] MEDS ORDERED: LIDOcaine 2% (20mg/ml) 5ml vial ONE (07:51)
[2024-06-03] MEDS ORDERED: dexamethasone sod phosphate 4mg/ml inj. ONE (07:51)
[2024-06-03] MEDS ORDERED: 0.9 % SODIUM CHLORIDE 10 ML VIAL ONE (07:53)
[2024-06-03] MEDS ORDERED: ePHEDrine 50MG/ML INJ. ONE (07:53)
[2024-06-03] MEDS: acetaminophen 1,000mg/100ml IV 100 ML IV ONE (09:00)
[2024-06-03] MEDS: hydrALAZINE 20mg/ml inj. IV PRN (09:00)
== END 2024-06-03 10:21 | disposition home or self-care (01) ==
LOC: PAS 05:31
PROVIDERS: ATTEND Urology
DX: N40.1 Benign prostatic hyperplasia with lower urinary tract symptoms (principal); R35.0 Frequency of micturition; N39.41 Urge incontinence; I10 Essential (primary) hypertension; J44.9 Chronic obstructive pulmonary disease, unspecified; E78.5 Hyperlipidemia, unspecified; M19.90 Unspecified osteoarthritis, unspecified site; Z86.73 Personal history of transient ischemic attack (TIA), and cerebral infarction without residual deficits; Z79.02 Long term (current) use of antithrombotics/antiplatelets; Z79.1 Long term (current) use of non-steroidal anti-inflammatories (NSAID); Z79.82 Long term (current) use of aspirin; Z79.891 Long term (current) use of opiate analgesic; Z79.899 Other long term (current) drug therapy; Z90.49 Acquired absence of other specified parts of digestive tract; Z98.890 Other specified postprocedural states; Z88.1 Allergy status to other antibiotic agents; Z88.8 Allergy status to other drugs, medicaments and biological substances
CPT/HCPCS: 36415; 52601; 80053; 82948; 85025; J0360; J0696; J1100; J2250; J2405; J2704; J3010; J3490; J7030; J7120; Z7506; Z7508; Z7512; 88305; A4338; A4355; A4358; A4618; A5200; A6258

== ENCOUNTER 2024-07-02 08:56 | Inpatient (IN) | payer BC, MEDICARE ==
[~2024-07-02] VITALS: Ht 177.8 cm; Wt 68.2 kg
[2024-07-02] MEDS: LidoCAINE 2% Topical Jelly 11mL syringe (UROJET) TOP ONE (10:25)
[2024-07-02] MEDS: HYDROmorphone 1 mg/ml syringe IV ONE (10:28)
[2024-07-02] MEDS ORDERED: magnesium Cl slow-release 64mg tablet PO PRN (10:30)
[2024-07-02] MEDS ORDERED: magnesium sulf-water 2g/50mL 50 ML IV PRN (10:30)
[2024-07-02] MEDS ORDERED: acetaminophen 325mg tablet PO PRN (10:30)
[2024-07-02] MEDS ORDERED: ondansetron/PF 4mg/2ml inj IV PRN (10:30)
[2024-07-02] MEDS ORDERED: magnesium sulf-water 4G/100mL 100 ML IV PRN (10:30)
[2024-07-02] MEDS ORDERED: potassium Cl 40MEQ/1/2NS 520ml 520 ML IV PRN (10:30)
[2024-07-02] MEDS ORDERED: potassium Cl 20 mEq SR tablet PO PRN (10:30)
[2024-07-02 10:37] LABS: BASOPHILS # (AUTO) 0.1 X10'3 (0-0.2); BASOPHILS % (AUTO) 0.4 % (0-1); EOSINOPHILS # (AUTO) 0.2 X10'3 (0-0.9); EOSINOPHILS % (AUTO) 1.3 % (0-6); HEMATOCRIT 46.2 % (42.0-52.0); HEMOGLOBIN 15.4 g/dl (14.0-17.9); LYMPHOCYTES # (AUTO) 0.9 X10'3 (1.1-4.8); LYMPHOCYTES % (AUTO) 6.9 % (21-51); MEAN CORPUSCULAR HEMOGLOBIN 31.8 PG (27.0-31.0); MEAN CORPUSCULAR HGB CONC 33.4 g/dL (33.0-36.5); MEAN CORPUSCULAR VOLUME 95.2 FL (78-98); MONOCYTES # (AUTO) 1.2 X10'3 (0-0.9); NEUTROPHILS # (AUTO) 10.9 X10'3 (1.8-7.7); NEUTROPHILS % (AUTO) 82.4 % (42-75); PLATELET COUNT 223 X10'3 (140-440); RED BLOOD COUNT 4.86 X10'6 (4.70-6.10); RED CELL DISTRIBUTION WIDTH 13.3 % (11.5-14.5); WHITE BLOOD COUNT 13.2 X10'3 (4.5-11.0)
[2024-07-02] MEDS: normal saline 1000ml 1,000 ML IV SCH (10:47)
[2024-07-02 10:51] LABS: ALANINE AMINOTRANSFERASE 36 U/L (12-78); ALBUMIN/GLOBULIN RATIO 0.8 (1.1-1.5); ALKALINE PHOSPHATASE 90 IU/L (46-116); ANION GAP 9 (8-16); ASPARTATE AMINO TRANSFERASE 26 U/L (10-37); BILIRUBIN,TOTAL 1.2 MG/DL (0.1-1.0); BLOOD UREA NITROGEN 18 MG/DL (7-18); BUN/CREATININE RATIO 14.6 (10.0-20.0); CALCIUM 8.9 MG/DL (8.5-10.1); CHLORIDE 105 MMOL/L (99-107); CREATININE 1.23 MG/DL (0.60-1.10); GLUCOSE 125 MG/DL (70-104); POTASSIUM 3.4 MMOL/L (3.5-5.1); SODIUM 138 MMOL/L (135-145); TOTAL CARBON DIOXIDE 23.6 MMOL/L (24-32); TOTAL PROTEIN 6.7 G/DL (6.4-8.2); eCRCL 48 ML/MIN; eGFR 57 ML/MIN
[2024-07-02] MEDS ORDERED: SOLI10TA2 PO (11:06)
[2024-07-02] MEDS ORDERED: HYDROmorphone inj. 0.5 MG/0.5 ML DISP.SYRIN IV PRN (14:05)
[2024-07-02] MEDS: HYDROmorphone 1 mg/ml syringe IV PRN (14:23)
[2024-07-02] MEDS: HYDROcodone/acetaminophen 5mg/325mg tablet PO PRN (16:47)
[2024-07-02] MEDS: nicotine 21mg patch - 24 hr TD ONE (17:55)
[2024-07-02 18:00] VITALS: BP 198/114; PULSE 88; RESP 14; TEMP 99; O2SAT 96
[2024-07-02] MEDS: K and/or MAG REPLACEMENT MC SCH (20:00)
[2024-07-02 22:00] VITALS: BP 151/88; PULSE 57; RESP 18; TEMP 98.1; O2SAT 100
[2024-07-03] VITALS (8 sets, daily range): BP systolic 142–221; BP diastolic 69–109; PULSE 52–91; RESP 14–20; TEMP 96.7–98.7; O2SAT 91–95
[2024-07-03] MEDS: potassium Cl 20 mEq SR tablet PO PRN (02:30)
[2024-07-03 06:59] LABS: BASOPHILS # (AUTO) 0.1 X10'3 (0-0.2); BASOPHILS % (AUTO) 0.5 % (0-1); EOSINOPHILS # (AUTO) 0.3 X10'3 (0-0.9); EOSINOPHILS % (AUTO) 2.1 % (0-6); HEMATOCRIT 44.4 % (42.0-52.0); LYMPHOCYTES % (AUTO) 7.9 % (21-51); MEAN CORPUSCULAR HEMOGLOBIN 32.1 PG (27.0-31.0); MEAN CORPUSCULAR HGB CONC 33.8 g/dL (33.0-36.5); MEAN CORPUSCULAR VOLUME 95.2 FL (78-98); MEAN PLATELET VOLUME 8.2 FL (7.4-10.4); MONOCYTES # (AUTO) 1.1 X10'3 (0-0.9); MONOCYTES % (AUTO) 9.1 % (2-12); NEUTROPHILS # (AUTO) 10.2 X10'3 (1.8-7.7); NEUTROPHILS % (AUTO) 80.4 % (42-75); PLATELET COUNT 184 X10'3 (140-440); RED BLOOD COUNT 4.67 X10'6 (4.70-6.10); RED CELL DISTRIBUTION WIDTH 13.2 % (11.5-14.5); WHITE BLOOD COUNT 12.6 X10'3 (4.5-11.0)
[2024-07-03 07:47] LABS: ALBUMIN 2.8 G/DL (3.4-5.0); ANION GAP 8 (8-16); BLOOD UREA NITROGEN 19 MG/DL (7-18); BUN/CREATININE RATIO 15.4 (10.0-20.0); CALCIUM 8.5 MG/DL (8.5-10.1); CHLORIDE 106 MMOL/L (99-107); CREATININE 1.23 MG/DL (0.60-1.10); GLUCOSE 92 MG/DL (70-104); POTASSIUM 3.9 MMOL/L (3.5-5.1); SODIUM 141 MMOL/L (135-145); TOTAL CARBON DIOXIDE 27.2 MMOL/L (24-32); eCRCL 47 ML/MIN; eGFR 57 ML/MIN
[2024-07-03] MEDS: duloxetine 30mg CAPSULE.DR PO SCH (17:45)
[2024-07-03] MEDS: cetirizine 10mg tablet PO SCH (17:48)
[2024-07-03] MEDS: predniSONE 20 mg tablet PO SCH (17:48)
[2024-07-03] MEDS: hydrALAZINE 20mg/ml inj. IV PRN (17:49)
[2024-07-03] MEDS: [UNRECOGNIZED DRUG - OTHER] PO SCH (20:00)
[2024-07-03] MEDS: atorvastatin 20mg tablet PO SCH (20:49)
[2024-07-03] MEDS: clopidogrel 75mg tablet PO SCH (20:49)
[2024-07-03] MEDS: traMADol 50MG tablet PO SCH (20:50)
[2024-07-03] MEDS: calcium polycarbophil 625mg tablet PO SCH (21:03)
[2024-07-04 06:28] LABS: BASOPHILS % (AUTO) 0.3 % (0-1); EOSINOPHILS % (AUTO) 0.2 % (0-6); HEMATOCRIT 42.5 % (42.0-52.0); HEMOGLOBIN 14.6 g/dl (14.0-17.9); LYMPHOCYTES # (AUTO) 0.7 X10'3 (1.1-4.8); LYMPHOCYTES % (AUTO) 8.4 % (21-51); MEAN CORPUSCULAR HEMOGLOBIN 32.7 PG (27.0-31.0); MEAN CORPUSCULAR HGB CONC 34.5 g/dL (33.0-36.5); MEAN CORPUSCULAR VOLUME 94.8 FL (78-98); MEAN PLATELET VOLUME 8.3 FL (7.4-10.4); MONOCYTES # (AUTO) 0.9 X10'3 (0-0.9); MONOCYTES % (AUTO) 10.9 % (2-12); NEUTROPHILS # (AUTO) 6.4 X10'3 (1.8-7.7); NEUTROPHILS % (AUTO) 80.2 % (42-75); PLATELET COUNT 183 X10'3 (140-440); RED BLOOD COUNT 4.48 X10'6 (4.70-6.10); RED CELL DISTRIBUTION WIDTH 13.3 % (11.5-14.5); WHITE BLOOD COUNT 7.9 X10'3 (4.5-11.0)
[2024-07-04 06:50] VITALS: BP 165/99; PULSE 67; RESP 16; TEMP 97
[2024-07-04 07:11] LABS: ALBUMIN 2.7 G/DL (3.4-5.0); ANION GAP 9 (8-16); BLOOD UREA NITROGEN 19 MG/DL (7-18); BUN/CREATININE RATIO 18.4 (10.0-20.0); CALCIUM 8.3 MG/DL (8.5-10.1); CHLORIDE 105 MMOL/L (99-107); CREATININE 1.03 MG/DL (0.60-1.10); GLUCOSE 124 MG/DL (70-104); MAGNESIUM 2.1 MG/DL (1.5-2.4); POTASSIUM 3.4 MMOL/L (3.5-5.1); SODIUM 140 MMOL/L (135-145); TOTAL CARBON DIOXIDE 26.4 MMOL/L (24-32); eCRCL 56 ML/MIN; eGFR 70 ML/MIN
[2024-07-04] MEDS: multivitamins, therapeutics tablet PO SCH (08:43)
[2024-07-04 10:32] VITALS: RESP 16
[2024-07-04] MEDS ORDERED: PER5325T PO (13:19)
== END 2024-07-04 15:42 | disposition home or self-care (01) | DRG 536 ==
LOC: ER 08:59 → ED HOLD 10:39 → ORTHO 4S 13:10
PROVIDERS: ADMIT Internal Medicine; ATTEND Internal Medicine
DX: S72.091A Other fracture of head and neck of right femur, initial encounter for closed fracture (principal); L03.114 Cellulitis of left upper limb; I67.82 Cerebral ischemia; E78.5 Hyperlipidemia, unspecified; E87.6 Hypokalemia; G89.29 Other chronic pain; I10 Essential (primary) hypertension; I25.2 Old myocardial infarction; I69.398 Other sequelae of cerebral infarction; J44.9 Chronic obstructive pulmonary disease, unspecified; M47.9 Spondylosis, unspecified; M48.00 Spinal stenosis, site unspecified; L40.9 Psoriasis, unspecified; F32.A Depression, unspecified; Z79.02 Long term (current) use of antithrombotics/antiplatelets; Z79.82 Long term (current) use of aspirin; Z85.6 Personal history of leukemia; Z82.49 Family history of ischemic heart disease and other diseases of the circulatory system; F17.290 Nicotine dependence, other tobacco product, uncomplicated; Z86.79 Personal history of other diseases of the circulatory system; Z88.8 Allergy status to other drugs, medicaments and biological substances; Z88.1 Allergy status to other antibiotic agents; X58.XXXA Exposure to other specified factors, initial encounter; Y93.89 Activity, other specified; Y92.89 Other specified places as the place of occurrence of the external cause; Y99.8 Other external cause status
CPT/HCPCS: 36415; 72100; 73521; 73700; 80048; 80053; 83735; 85025; 87081; 97116; 97161; 97530; A4615; A6590; G0378; J0360; J1171; J7030; J7512

== ENCOUNTER 2024-08-09 12:57 | Outpatient (CLI) | payer BC, MEDICARE ==
[~2024-08-09 12:57] MED LIST changes: -FLO0.4C PO; +SOLI10TA2 PO; -TOLT4CAP PO
== END 2024-08-09 23:59 | disposition home or self-care (01) ==
LOC: RAD 12:57
PROVIDERS: ATTEND Family Medicine
DX: M16.11 Unilateral primary osteoarthritis, right hip (principal); M21.851 Other specified acquired deformities of right thigh; M25.551 Pain in right hip
CPT/HCPCS: 73502; 73700

== ENCOUNTER 2024-08-17 07:27 | Outpatient (CLI) | payer BC, MEDICARE | END 2024-08-17 23:59 | disposition home or self-care (01) | LOC: MRI02 07:27 | PROVIDERS: ATTEND Family Medicine | DX: M47.816 Spondylosis without myelopathy or radiculopathy, lumbar region (principal); M41.86 Other forms of scoliosis, lumbar region; M43.16 Spondylolisthesis, lumbar region; M48.07 Spinal stenosis, lumbosacral region; M51.87 Other intervertebral disc disorders, lumbosacral region; M25.78 Osteophyte, vertebrae; M51.360 Other intervertebral disc degeneration, lumbar region with discogenic back pain only; M21.371 Foot drop, right foot | CPT/HCPCS: 72148 ==

== ENCOUNTER 2024-09-15 12:33 | Outpatient (CLI) | payer BC ==
[~2024-09-15 12:33] MED LIST changes: +iohexol 350MG/ML 100ml bottle IV ONE
[2024-09-15 13:27] LABS: BASOPHILS % (AUTO) 0.4 % (0-1); EOSINOPHILS # (AUTO) 0.2 X10'3 (0-0.9); EOSINOPHILS % (AUTO) 1.6 % (0-6); HEMATOCRIT 44.2 % (42.0-52.0); LYMPHOCYTES # (AUTO) 1.9 X10'3 (1.1-4.8); LYMPHOCYTES % (AUTO) 17.7 % (21-51); MEAN CORPUSCULAR HGB CONC 34.1 g/dL (33.0-36.5); MEAN PLATELET VOLUME 8.1 FL (7.4-10.4); MONOCYTES % (AUTO) 9.1 % (2-12); NEUTROPHILS # (AUTO) 7.5 X10'3 (1.8-7.7); NEUTROPHILS % (AUTO) 71.2 % (42-75); PLATELET COUNT 287 X10'3 (140-440); RED CELL DISTRIBUTION WIDTH 13.7 % (11.5-14.5); WHITE BLOOD COUNT 10.5 X10'3 (4.5-11.0)
[2024-09-15 13:36] LABS: ALBUMIN 3.2 G/DL (3.4-5.0); ANION GAP 6 (8-16); BLOOD UREA NITROGEN 13 MG/DL (7-18); BUN/CREATININE RATIO 13.7 (10.0-20.0); CALCIUM 9.1 MG/DL (8.5-10.1); CHLORIDE 105 MMOL/L (99-107); CREATININE 0.95 MG/DL (0.60-1.10); GLUCOSE 102 MG/DL (70-104); POTASSIUM 3.1 MMOL/L (3.5-5.1); SODIUM 141 MMOL/L (135-145); TOTAL CARBON DIOXIDE 30.4 MMOL/L (24-32); eGFR 76 ML/MIN
[2024-09-17 11:15] LABS: PROSTATE SPECIFIC AG, SERUM 0.5 ng/mL (0.0-4.0); PSA, FREE 0.1 ng/mL
== END 2024-09-15 23:59 | disposition home or self-care (01) ==
LOC: RAD 12:33
PROVIDERS: ATTEND Internal Medicine Interventional Cardiology
DX: I74.5 Embolism and thrombosis of iliac artery (principal); I72.3 Aneurysm of iliac artery; I70.203 Unspecified atherosclerosis of native arteries of extremities, bilateral legs; I77.810 Thoracic aortic ectasia; I65.23 Occlusion and stenosis of bilateral carotid arteries; D64.9 Anemia, unspecified; I51.7 Cardiomegaly; J43.9 Emphysema, unspecified
CPT/HCPCS: 36415; 71275; 75635; 80048; 84153; 84154; 85025; 93880; Q9967

== ENCOUNTER 2024-09-15 12:44 | Outpatient (CLI) | payer BC ==
[~2024-09-15 12:44] MED LIST changes: -iohexol 350MG/ML 100ml bottle IV ONE
[2024-09-15] MEDS ORDERED: iohexol 350MG/ML 100ml bottle IV ONE (13:46)
== END 2024-09-15 23:59 | disposition home or self-care (01) ==
LOC: RAD 12:44
PROVIDERS: ATTEND Urology
DX: N42.9 Disorder of prostate, unspecified (principal)
CPT/HCPCS: Q9967

== ENCOUNTER 2024-11-22 09:24 | Inpatient (IN) | payer BC ==
[2024-11-07 15:00] LABS: BASOPHILS % (AUTO) 0.3 % (0-1); EOSINOPHILS # (AUTO) 0.2 X10'3 (0-0.9); EOSINOPHILS % (AUTO) 2.3 % (0-6); LYMPHOCYTES # (AUTO) 1.2 X10'3 (1.1-4.8); LYMPHOCYTES % (AUTO) 11.6 % (21-51); MEAN CORPUSCULAR HEMOGLOBIN 31.3 PG (27.0-31.0); MEAN CORPUSCULAR HGB CONC 33.7 g/dL (33.0-36.5); MEAN CORPUSCULAR VOLUME 92.8 FL (78-98); MEAN PLATELET VOLUME 8.3 FL (7.4-10.4); MONOCYTES # (AUTO) 0.9 X10'3 (0-0.9); MONOCYTES % (AUTO) 9.1 % (2-12); NEUTROPHILS # (AUTO) 7.8 X10'3 (1.8-7.7); NEUTROPHILS % (AUTO) 76.7 % (42-75); PRE OP HEMATOCRIT 44.4 % (42.0-52.0); PRE OP PLATELET COUNT 215 X10'3 (140-440); PRE OP WHITE BLOOD COUNT 10.1 10'3 (4.8-10.8); RED BLOOD COUNT 4.79 X10'6 (4.70-6.10); RED CELL DISTRIBUTION WIDTH 13.5 % (11.5-14.5)
[2024-11-07 16:01] LABS: ALBUMIN 3.3 G/DL (3.4-5.0); ALKALINE PHOSPHATASE 88 IU/L (46-116); BLOOD UREA NITROGEN 15 MG/DL (7-18); BUN/CREATININE RATIO 13.9 (10.0-20.0); CALCIUM 9.2 MG/DL (8.5-10.1); CHLORIDE 104 MMOL/L (99-107); CREATININE 1.08 MG/DL (0.60-1.10); PRE OP ALT 22 U/L (30-65); PRE OP ANION GAP 9 (8-16); PRE OP AST 17 U/L (10-37); PRE OP BILIRUB, TOTAL 0.7 MG/DL (0.0-1.0); PRE OP GLUCOSE 95 MG/DL (70-104); PRE OP SODIUM 142 MMOL/L (135-145); TOTAL CARBON DIOXIDE 29.5 MMOL/L (24-32); TOTAL PROTEIN 6.5 G/DL (6.4-8.2); eGFR 66 ML/MIN
[2024-11-07 16:08] LABS: PRE OP POTASSIUM 3.2 MMOL/L (3.4-5.1)
[2024-11-11] MEDS: ceFAZolin 2gm in dextrose, iso 50 ML IV ONE (05:30)
[2024-11-11] MEDS: famotidine 20mg tablet PO ONE (05:30)
[2024-11-22] VITALS (29 sets, daily range): BP systolic 145–178; BP diastolic 79–105; PULSE 58–73; RESP 9–20; TEMP 98.1–98.3; O2SAT 72–100
[~2024-11-22] VITALS: Ht 177.8 cm; Wt 60.4 kg
[2024-11-22] MEDS: ceFAZolin 2gm in dextrose, iso 50 ML IV ONE (05:30)
--- NOTE | 2024-11-22 07:11 | HISTORY AND PHYSICAL ---
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 Patient is admitted for surgical treatment of this problem Allergies: Coded Allergies: lisinopril (Verified Allergy, Severe, ANGIOEDEMA COUGH, 06/02/24) Tetracyclines (Verified Allergy, Unknown, swelling RASH, 06/02/24) Home Medications Home Medications Active Reported GAS RELIEF capsule (Simethicone) 125 Mg Capsule 125 Mg PO BID Potassium Gluconate 595 Mg (99 Mg) Tablet 99 Mg PO DAILY Vesicare (Solifenacin Succinate) 10 Mg Tablet 1 Tab PO HS Vitamin D (Cholecalciferol) Unknown Strength Tablet 2,000 Units PO DAILY Fibercon (Calcium Polycarbophil) 625 Mg Tablet 2 Tab PO QPM Fish Oil Canyon-3 Softgel (Canyon-3S/Dha/Epa/Fish Oil) Unknown Strength Capsule. 1 Cap PO DAILY [Balance Nature 3] 3 Tab PO BID Multi Vitamin Daily (Multivitamin) 1 Each Tablet 1 Tab PO DAILY Prednisone* (Prednisone) 20 Mg Tablet 1 Tab PO DAILY PRN Duloxetine HCl 30 Mg Capsule. 90 Mg PO DAILY Plavix (Clopidogrel Bisulfate) 75 Mg Tablet 75 Mg PO HS Do not stop medication unless instructed by prescriber. Tramadol HCl 50 Mg Tablet 1 Tablet PO TID Lipitor (Atorvastatin Calcium) 40 Mg Tablet 1 Tab PO HS Past Medical History Past Medical History - CVA (Cerebrovascular Accident)- TIA (Transient Ischemic Attack)- Strokes- Hypertension- COPD (Chronic Obstructive Pulmonary Disease)- Psoriasis Past Surgical History Past Surgical History Aortic abdominal repair Family History Patient History: FH: heart attack MOTHER (Ventricular infarct) FH: leukemia FAMILY/OTHER, Name: Sister Exam Vitals: Weight BMI BMI Percentile Duc 69 in Weight 131 lb BMI 19.35 BP 168/99 mmHg HR 93 bpm )2 Sat 91 % Cardiac: RRR Pulmonary: CTA Abdomen: Soft BS+ No masses Neurologic: Patient awake alert Oriented in person, place and time spheres Minimental exam: attention, affect, memory, intelligence, language are normal. Cranial nerve examination: I:Olfaction normal. II: vision is adequate. Visual hassan by confrontation are conserved. III, IV and : Pupils equally round and react to light symmetrically. Extraocular muscles are intact. V: Facial sensation is symmetric. VII: No facial droop. VIII:Hearing intact to conversation and symmetric. IX anX: Palate upgoing not deviated. XI: SCM and Trapezius strength is symmetrical. XII:Tongue midline. Strength in upper extremities is 5/5 proximal and distal Strength in lower extremities is 5/5 proximal and distal. Osteotendinous reflexes are ++/+++++ symmetrical in biceps, triceps, supinator, patella, and achilles tendon. Plantar responses normal No Babinsky or Joy reflexes Coordination: finger to nose apporopiate. No Adiadochokinesia. Gait is normal. . 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 DiagnosisChronic obstructive pulmonary disease, unspecified J44.9HCCPsoriasis, unspecified L40.9Essential (primary) hypertension [id number] of the skin and subcutaneous tissue, unspecified L98.9Disease of digestive system, unspecified K92.9 Proceed with lumbar laminectomy at L3 L4, discectomy, and decompression of the cauda equina to address the large disc herniation and prevent further progression of neurological symptoms. The aim is to potentially improve some of the existing neurological deficits.- Benefits, risks, alternatives for the procedure were discussed with the patient and he wants to proceed with the surgery and signed informed consent JOHN CARVER MD Nov 22, 2024 07:11
[~2024-11-22 09:24] MED LIST changes: -CETI-90 PO; +POTA99TA10 PO; +SIME125C97 PO; -SIME180C34 PO; +ringers solution, lacted 1,000 ML IV SCH
[2024-11-22] MEDS: famotidine 20mg tablet PO ONE (10:44)
[2024-11-22] MEDS: ringers solution, lacted 1,000 ML IV SCH ×2 (10:44→17:18)
[2024-11-22 11:21] LABS: ISTAT CREATININE 1.1 mg/dL (0.8-1.3); ISTAT HGB 14.6 g/dl (14.0-17.9); ISTAT IONIZED CALCIUM 1.19 mmol/L (1.03-1.32); ISTAT K 3.1 mmol/L (3.5-5.1); POC BUN/CREATININE RATIO 14.5 (5.4-32.0)
[2024-11-22] MEDS ORDERED: Potassium Cl inj 40 MEQ in normal saline 500ml IV soln 500 ML IV STA (11:38)
[2024-11-22] MEDS: Potassium Cl inj 40 MEQ in sodium chloride 0.45% 500ml 500 ML IV STA (12:09)
[2024-11-22] MEDS ORDERED: predniSONE 20 mg tablet PO PRN (12:25)
[2024-11-22] MEDS ORDERED: gelatin sponge, absorbable (Gelfoam 100) sponge TP ONE (12:33)
[2024-11-22] MEDS ORDERED: BUPIVAcaine 2.5mg/ml inj 50ml vial (contains preservative) ONE (12:33)
[2024-11-22] MEDS ORDERED: LIDOcaine 1% 30ml preserv. free vial ONE (12:33)
[2024-11-22] MEDS ORDERED: methylPREDNISolone acetate 80mg/ml inj**IM only ONE (12:33)
[2024-11-22] MEDS ORDERED: Thrombin (Bovine) 5,000 unit vial TP ONE (12:33)
[2024-11-22] MEDS: morphine 4 MG/ML inj SYRINge IV ONE ×2 (12:42→13:05)
[2024-11-22] MEDS ORDERED: fentaNYL /PF 50mcg/ml 5ml ampule ONE (12:50)
[2024-11-22] MEDS ORDERED: midazolam 1 mg/ML 2ml injection ONE (12:50)
[2024-11-22] MEDS ORDERED: LIDOcaine 2% (20mg/ml) 5ml vial ONE (12:52)
[2024-11-22] MEDS ORDERED: sevoflurane 250ml liquid IH ONE (13:02)
[2024-11-22] MEDS ORDERED: morphine 2 MG/ML inj. syringe IV PRN (13:10)
[2024-11-22] MEDS ORDERED: proCHLORperazine 10 MG/2 ml inj IV PRN (13:10)
[2024-11-22] MEDS: hydrocortisone sod succ/PF 100mg/2ml inj. IV ONE (13:10)
[2024-11-22] MEDS ORDERED: morphine 4 MG/ML inj SYRINge IV PRN (13:10)
[2024-11-22] MEDS ORDERED: ondansetron/PF 4mg/2ml inj IV PRN ×2 (13:10→17:35)
[2024-11-22] MEDS ORDERED: enalaprilat 1.25mg/ml 2ml vial IV PRN (13:10)
[2024-11-22] MEDS ORDERED: labetalol 20mg/4ml (5mg/ml) syringe IV PRN (13:10)
[2024-11-22] MEDS ORDERED: meperidine/PF 25mg/ml syringe IV PRN ×3 (13:10)
[2024-11-22] MEDS ORDERED: propofol inj 20 ML IV ONE (13:15)
[2024-11-22] MEDS: LIDOcaine 1% 30ml preserv. free vial IJ ONE (14:03)
[2024-11-22] MEDS ORDERED: albumin (Human) 5% 250ml 250 ML IV ONE (16:52)
[2024-11-22] MEDS ORDERED: acetaminophen 1,000mg/100ml IV 100 ML IV ONE (16:52)
[2024-11-22] MEDS ORDERED: dexamethasone sod phosphate 4mg/ml inj. ONE (16:53)
[2024-11-22] MEDS ORDERED: ondansetron/PF 4mg/2ml inj ONE (16:53)
[2024-11-22] MEDS ORDERED: naloxone 0.4 mg/ml inj IV PRN (17:35)
[2024-11-22] MEDS ORDERED: meperidine/PF 100mg/ml syringe IV PRN ×2 (18:06→18:10)
[2024-11-22] MEDS: meperidine/PF 100mg/ml syringe IV PRN (19:46)
[2024-11-22] MEDS: traMADol 50MG tablet PO SCH (20:40)
[2024-11-22] MEDS: calcium polycarbophil 625mg tablet PO SCH (21:46)
[2024-11-22] MEDS: SIMETHICONE 125 MG CAPSULE PO SCH (21:46)
[2024-11-22] MEDS: atorvastatin 20mg tablet PO SCH (21:47)
[2024-11-22] MEDS: potassium CL 20mEq in D5-1/2NS 1,000 ML IV SCH (21:51)
[2024-11-23] VITALS (8 sets, daily range): BP systolic 122–174; BP diastolic 68–99; PULSE 71–83; RESP 14–18; TEMP 97.9–98.9; O2SAT 94–99
[2024-11-23] MEDS ORDERED: magnesium hydroxide 30ml (MOM) UD suspension PO PRN (05:00)
[2024-11-23] MEDS: HYDROcodone/acetaminophen 10/325mg tab PO PRN ×2 (05:15→10:53)
[2024-11-23] MEDS: docusate sod 100mg capsule PO SCH (07:57)
[2024-11-23] MEDS: duloxetine 30mg CAPSULE.DR PO SCH (07:57)
[2024-11-23] MEDS: OMEGA-3/DHA/EPA/FISH OIL 1 EACH CAPSULE.DR PO SCH (07:58)
[2024-11-23] MEDS: multivitamins, therapeutics tablet PO SCH (07:59)
[2024-11-23] MEDS: Potassium Gluconate 99 MG PO SCH (08:00)
[2024-11-23] MEDS: nicotine 21mg patch - 24 hr TD SCH (08:00)
[2024-11-23] MEDS: cholecalciferol (vitamin D3) 1,000 unit (25mcg) tablet PO SCH (08:00)
[2024-11-23] MEDS ORDERED: HYDR-3965 PO (11:10)
--- NOTE | 2024-11-23 11:17 | DISCHARGE SUMMARY ---
Discharge Summary Providers to CC ~ Discharge Summary Assessment Patient underwent Lumbar laminectomyn and idscetomy with no complications pain under control Ambulating in floor Able to go to bathroom without difficulties Admission Diagnosis: Lumbar radiculopathuy Hospital Course DATE OF ADMISSION: DATE OF DISCHARGE: Discharge Diagnosis\Comment: Status post lumbar laminectomy and discectomy L3-L4 Operations\Procedures: Lumbar laminectommy and discectomy L3-L4 Consultants: none Complications: none Condition on DC: Stable Discharge Summary: Patient underwent Lumbar laminectomyn and idscetomy with no complications pain under control Ambulating in floor Able to go to bathroom without difficulties *Problems/Diagnosis: (1) Bilateral leg weakness Status: Acute (2) Back pain Status: Acute Total Time Spent on D/C: Up to 30 Minutes JOHN CARVER MD Nov 23, 2024 11:16
[2024-11-23] MEDS ORDERED: lactose-reduced food (Ensure Enlive) - 237ml bottle PO SCH ×2 (13:00→18:00)
--- NOTE | 2024-12-06 23:38 | OPERATIVE REPORT ---
Operative Report Providers to CC CC: LEE CARVER MD ~ Date of Procedure: Nov 22, 2024 Pre-Operative Diagnosis: Lumbar radiculopathuy Post-Operative Diagnosis SAME as PRE-Op Procedure Performed Lumbar bilateral laminectomies and foraminotomies L3-L4 with MTRX tubes and use of microscope Surgeon: Lee Pimentel MD School Age Lead Teacher none Anesthesiologist: Sahil Gonzalez Type of Anesthesia: General Findings: As per post op diagnosis Complications none Prosthetics\Implants used: none Estimated Blood Loss: 30 cc Specimen Removed: none Description of Procedure: The patient was brought into the operating room and was place in the stretcher b eside the operating table. Large-bore peripheral IVs were put in place. Anesthesia was induced for IV sedation. The patient was intubated through orotracheal intubation. The patient was turned into prone position on the axis table with chest and hip support. The upper and lower extremities were padded and placed in anatomical position. The lumbosacral region was prepped and draped in the usual fashion. The C-arm was brought into the field and the L3-L4 levels were marked on the skin. An incision was performed to the right of the midline at the L3-L4 level over the laminas compressing the skin and subcutaneous tissue. Hemostasis was revised with bipolar coagulation. The aponeurosis was incised in the same manner with electroknife and then the different telescopic dilators were introduced from the METrx system under x-ray visualization to reach the junction between the laminas and the facets on the right. The larger dilator was put in place and then the working channel tube from the METrx Seeonic system was put in place and attached to a self-retaining arm attached to the?table maintaining the working channel down to the junction of the laminas and the facets at the L3-L4 levels on the right. Then, the microscope was brought into the field. A small amount of muscle overlying the laminas was removed with electro knife and complete laminectomy was performed of the right lamina of L3 and superior laminotomy of L4 and then midportion of the facets encountering the ligamentum flavum that was then removed with Kerrison rongeurs and exposing the dura mater. The nerve root was encountered and carefully retracted medially, the ligamentum flavum in its entirety was removed specially around the pars and in the lateral recess decompressing the dural sac.?The flavum was then resected over the top of the Duramater in the contralateral side and was resected with kerrison rongeurs and on the contralateral lateral recess decompressing the dural sac and its contents. The area was further explored in all directions with right angle ball dissector to confirm decompression at the foramina bilaterally. and At this point, hemostasis was revised with bipolar coagulations and FloSeal. The 20 mg of Depo-Medrol free of preservatives was left in place with a combination of 0.25% Marcaine, a total amount of 1.5 mL and then the tube working channels were removed, and hemostasis was revised in the muscle layers. The aponeurosis was closed with interrupted suture of 3-0 Vicryl and the skin was closed in 2 layers with 2-0 Vicryl and continuous Monocryl subcutaneous suture. Dressing was placed in surgical region and the patient was turned into supine position. Anesthesia was reverted. The patient was taken into the recovery room in a stable general and neurological conditions. No complications Counts repoted as correct: Yes LEE CARVER MD December 06, 2024 23:38
== END 2024-11-23 12:15 | disposition home or self-care (01) | DRG 519 ==
LOC: PRE-OP 09:24 → ORTHO 4S 17:43
PROVIDERS: ADMIT Neurological Surgery; ATTEND Neurological Surgery
PROC: 01NB0ZZ Release Lumbar Nerve, Open Approach (ICD-10-PCS; 2024-11-22)
PROC: 00NY0ZZ Release Lumbar Spinal Cord, Open Approach (ICD-10-PCS; principal; 2024-11-22 13:02)
DX: M51.16 Intervertebral disc disorders with radiculopathy, lumbar region (principal); G83.4 Cauda equina syndrome; I10 Essential (primary) hypertension; J44.9 Chronic obstructive pulmonary disease, unspecified; N40.0 Benign prostatic hyperplasia without lower urinary tract symptoms; Z86.73 Personal history of transient ischemic attack (TIA), and cerebral infarction without residual deficits; Z88.1 Allergy status to other antibiotic agents; Z88.8 Allergy status to other drugs, medicaments and biological substances
CPT/HCPCS: Z7506; Z7508; 36415; 72100; 76000; 80047; 80053; 82948; 85025; 86885; 86900; 86901; 97110; 97161; 97530; A4215; A4618; A6213; A6449; A7000; C1758; G0378; J0131; J0690; J1010; J1100; J1720; J2003; J2175; J2250; J2270; J2405; J2704; J3010; J3480; J3490; J7040; J7050; J7120; P9045

== ENCOUNTER 2025-02-20 21:44 | Emergency (ER) | payer BC ==
[~2025-02-20] VITALS: Ht 177.8 cm; Wt 56.4 kg
[~2025-02-20 21:44] MED LIST changes: -CALC625T PO; -CHOL20004 PO; -CLOP-32 PO; -DULO30CA52 PO; -MULT-1085 PO; -POTA99TA10 PO; -PRED20TA PO; -SIME125C97 PO; -SOLI10TA2 PO; -TRAM50TA2 PO; -[UNRECOGNIZED DRUG - OTHER] PO; -ringers solution, lacted 1,000 ML IV SCH
--- NOTE | 2025-02-20 21:59 | Physician Documentation ---
History of Present Illness ~ Stated Complaint: RECTAL BLEEDING Time Seen by MD: 21:48 Primary Medical Doctor: PETR HUTCHINS HPI Patient presents to the emergency room with red blood per rectum. Patient has a history of a spinal stroke leading to problems with constipation. Patient asked to be disimpacted every now and again and most recently over the past couple of days patient had to be disimpacted by his with resulting red blood per rectum. Patient has came concerned because seemed to getting worse. Denies any weakness or lightheadedness. She is having hold bowel movements of red blood now. Denies abdominal pain or rectal pain. Patient does take Plavix Medication Reconciliation Allergies: Coded Allergies: lisinopril (Verified Allergy, Severe, ANGIOEDEMA COUGH, 02/20/25) Tetracyclines (Verified Allergy, Unknown, swelling RASH, 02/20/25) Scheduled Atorvastatin Calcium (Lipitor), 1 TAB PO HS, (Reported) Dexter-3S/Dha/Epa/Fish Oil (Fish Oil Dexter-3 Softgel), 1 CAP PO DAILY, (Reported) Past Medical History Past Medical History: CVA/TIA/Stroke, Hypertension, COPD, Psoriasis Past Surgical History: other Other Past Surgical History: AAA repair Patient History: FH: heart attack MOTHER (Ventricular infarct) FH: leukemia FAMILY/OTHER, Name: Sister Alcohol Use: Occasionally Drug Use: none Lives with: Spouse Lives In: Home Occupation: employed Review of Systems ROS All review of systems negative except as per HPI Physical Exam Physical Exam General: Patient is awake, alert, oriented x4 in no acute distress Head: Normocephalic and atraumatic. Eyes: Conjunctival normal. EOMI. PERRL. ENT: Mucous membranes moist. Neck: Supple, trachea is midline. Chest: Clear to auscultation bilaterally without rales, rhonchi, or wheezes. There is no accessory muscle use or retractions. Cardiac: RRR without murmurs, gallops, or rubs. Abd: Soft, nondistended, nontender, with normoactive bowel sounds. No guarding, rebound, or rigidity. Progress Results/Orders Results/Orders Orders - EDUARDO JOHN MD Urinalysis, Cult If Indicated (02/20/25 21:45) Saline Lock (02/20/25 21:45) Type And Screen (02/20/25 21:45) Potassium Cl Sr Tablet (K-Dur Tablet) (02/20/25 22:31) Completed Orders - EDUARDO JOHN MD Cbc/Diff (02/20/25 21:45) CMP (02/20/25 21:45) Electrocardiogram (02/20/25 22:04) Vital Signs 02/20/25 21:57 Temp 99.3 Pulse 79 Resp 14 B/P (MAP) 123/74 Pulse Ox 97 O2 Flow Rate 0 Laboratory Tests Test 02/20/25 21:56 White Blood Count 8.6 Red Blood Count 4.25 L Hemoglobin 13.4 L Hematocrit 39.4 L Mean Corpuscular Volume 92.8 Mean Corpuscular Hemoglobin 31.6 H Mean Corpuscular Hemoglobin Concent 34.1 Red Cell Distribution Width 13.0 Platelet Count 185 Mean Platelet Volume 8.5 Neutrophils (%) (Auto) 64.1 Lymphocytes (%) (Auto) 20.4 L Monocytes (%) (Auto) 9.6 Eosinophils (%) (Auto) 4.6 Basophils (%) (Auto) 1.3 H Neutrophils # (Auto) 5.5 Lymphocytes # (Auto) 1.7 Monocytes # (Auto) 0.8 Eosinophils # (Auto) 0.4 Basophils # (Auto) 0.1 CBC Comment Sodium Level 141 Potassium Level 3.2 L Chloride Level 104 Carbon Dioxide Level 28.2 Anion Gap 9 Blood Urea Nitrogen 15 Creatinine 1.25 H Estimated GFR/1.73 m2 56 BUN/Creatinine Ratio 12.0 Glucose Level 113 H Calcium Level 9.0 Total Bilirubin 0.4 Aspartate Amino Transf (AST/SGOT) 18 Alanine Aminotransferase (ALT/SGPT) 21 Alkaline Phosphatase 90 Total Protein 6.5 Albumin 3.1 L Globulin 3.4 Albumin/Globulin Ratio 0.9 L Chemistry Comments Medical Decision Making Findings Patient presents to the emergency room for evaluation of blood per rectum as per HPI. Differentials include but are not limited to brisk upper GI bleed, hemorrhoidal bleed, av malformation bleed, diverticular bleed. CBC ordered for concerns for possible anemia however it was reassuring. Vital signs stable. No additional bleeding in the emergency room. Had long discussion regarding constipation and patient is inquiring about Linzess. We do not suspect small- bowel obstruction. I will give him a small amount and he is to follow up with his doctor regarding additional prescriptions versus discontinuing. The need to hydrate also discussed. ER precautions regarding weakness, syncope or copious amounts of bleeding discussed as well. Departure Disposition: HOME / SELF CARE / HOMELESS Impression: Primary Impression: Bright red blood per rectum Condition: Stable Discharge Instructions: Bloody Stools Prescriptions Linaclotide (LINZESS) 145 Mcg Capsule 1 CAP PO DAILY, #14 CAP 0 Refills Prov: EDUARDO JOHN MD 02/20/25 Education Educated: Patient Educated regarding: diagnosis, treatment, need for follow up Signature Scribe Signature: No scribe Attestation: The note accurately reflects work and decisions made by me.Eduardo John MD 02/20/25 22:34 EDUARDO JOHN MD Feb 20, 2025 21:59
[2025-02-20 22:05] LABS: MEAN PLATELET VOLUME 8.5 FL (7.4-10.4); RED CELL DISTRIBUTION WIDTH 13.0 % (11.5-14.5)
--- NOTE | 2025-02-20 22:11 | ELECTROCARDIOGRAPH REPORT ---
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 Ashwin Rob Measurements Intervals Clyde Rate: 77 P: 89 MD: 180 QRS: -17 QRSD: 147 T: 9 QT: 442 QTc: 501 Interpretive Statements Sinus rhythm Atrial premature complexes Consider left atrial enlargement Right bundle branch block Electronically Signed On 02-22-2025 19:15:[address] Ashwin Rob Please click the below link to view image of tracing.
[2025-02-20 22:19] LABS: CREATININE 1.25 MG/DL (0.60-1.10); TOTAL CARBON DIOXIDE 28.2 MMOL/L (24-32); eCRCL 38 ML/MIN; eGFR 56 ML/MIN
[2025-02-20] MEDS ORDERED: LINA145C PO (22:33)
[2025-02-20] MEDS: potassium Cl 20 mEq SR tablet PO STA (22:36)
[2025-02-20 22:48] VITALS: BP 124/80; PULSE 90; RESP 16; TEMP 98.6; O2SAT 99
== END 2025-02-20 22:55 | disposition home or self-care (01) ==
LOC: ER 21:44
DX: K62.5 Hemorrhage of anus and rectum (principal); I10 Essential (primary) hypertension; J44.9 Chronic obstructive pulmonary disease, unspecified; Z86.73 Personal history of transient ischemic attack (TIA), and cerebral infarction without residual deficits; Z88.8 Allergy status to other drugs, medicaments and biological substances; Z88.1 Allergy status to other antibiotic agents; Z79.899 Other long term (current) drug therapy; Z72.89 Other problems related to lifestyle
CPT/HCPCS: 36415; 80053; 85025; 86885; 86900; 86901; 93005; 99284

== ENCOUNTER 2025-03-27 10:04 | Outpatient (CLI) | payer BC ==
[~2025-03-27 10:04] MED LIST changes: +LINA145C PO
--- NOTE | 2025-03-27 17:45 | VASCULAR REPORT ---
Exam: [facility] AORTA/ILIAC/GRAFT Date: 03/27/2025 10:28 AM Clinical History: Evaluation of the endograft Comparison: 09/15/2024 CTA abdomen pelvis Findings: The proximal abdominal aorta measures 3.1 x 3.3 cm Mid abdominal aorta measures 2.6 x 2.8 cm. Distal abdominal aorta measures 3.3 x 3.6 cm. The celiac artery demonstrates high-grade stenosis with proximal velocity of 387 cm/sec. The celiac trunk measures approximately 1.5 cm in diameter. There are bilateral iliac endograft stents. The right endograft demonstrates a velocity of 34 cm/sec. Left endograft demonstrates velocity of 57 cm/sec. 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 There is increased velocity of the right external iliac artery endograft measuring 184 cm/sec. 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 This appears more pronounced than o n the previous CT angiogram. Recommend CT angiogram of the abdomen / pelvis to further characterize. Likely stenosis of the distal right external iliac artery endograft anastomosis. 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 angiogram abdomen pelvis too characterize. No definitive endoleak seen on the provided images.
== END 2025-03-27 23:59 | disposition home or self-care (01) ==
LOC: VAS 10:04
PROVIDERS: ATTEND Internal Medicine Interventional Cardiology
DX: I71.30 Abdominal aortic aneurysm, ruptured, unspecified (principal); I71.20 Thoracic aortic aneurysm, without rupture, unspecified; E78.5 Hyperlipidemia, unspecified; F17.290 Nicotine dependence, other tobacco product, uncomplicated; M54.50 Low back pain, unspecified; I77.4 Celiac artery compression syndrome
CPT/HCPCS: 93978

== ENCOUNTER 2025-03-27 10:10 | Outpatient (CLI) | payer BC ==
[2025-03-27 10:53] LABS: MEAN PLATELET VOLUME 8.2 FL (7.4-10.4); RED CELL DISTRIBUTION WIDTH 13.5 % (11.5-14.5)
[2025-03-27 11:31] LABS: CHOL/HDL RATIO 2.1 (0.00-4.99); CREATININE 1.08 MG/DL (0.60-1.10); LDL CHOLESTEROL 50 MG/DL (50-100); TOTAL CARBON DIOXIDE 23.5 MMOL/L (24-32); eGFR 66 ML/MIN
== END 2025-03-27 23:59 | disposition home or self-care (01) ==
LOC: RAD 10:10
PROVIDERS: ATTEND Family Medicine
DX: I71.20 Thoracic aortic aneurysm, without rupture, unspecified (principal); I73.9 Peripheral vascular disease, unspecified; Z79.01 Long term (current) use of anticoagulants
CPT/HCPCS: 36415; 80053; 80061; 83695; 85025